=== PATIENT | male | born 1995 | race Caucasian/White ===

== ENCOUNTER 2017-12-20 15:33 | Emergency (ER) | payer BC ==
[2017-12-20 15:41] VITALS: BP 118/77; PULSE 74; RESP 18; TEMP 98.5
--- NOTE | 2017-12-20 15:48 | ED ---
Upper Extremity HPI - General Chief Complaint: Extremity Injury, Upper Stated Complaint: lt hand finger injury Time Seen by Provider: 12/20/17 15:42 Source: patient, RN notes reviewed Mode of arrival: ambulatory Limitations: no limitations - History of Present Illness Initial Comments: 22-year-old male presents emergency Department chief complaint of left hand fourth and fifth digit injury. Patient states he was [place] rope [place] states that he did not let go causing injury to to his fingers. He states that it he's had a prior dislocation to his digit. He does have a ring on his fourth digit which is difficult to remove. Patient denies any paresthesias. Denies any wrist pain. - Related Data Home Medications Medication Instructions Recorded Confirmed No Known Home Medications 12/20/17 12/20/17 Allergies Allergy/AdvReac Type Severity Reaction Status Date / Time No Known Allergies Allergy Verified 12/20/17 15:39 Review of Systems ROS Statement: Those systems with pertinent positive or pertinent negative responses have been documented in the HPI. ROS Other: All systems not noted in ROS Statement are negative. Past Medical History Past Medical History: No Reported History History of Any Multi-Drug Resistant Organisms: None Reported Past Surgical History: Hernia Repair Past Psychological History: No Psychological Hx Reported Smoking Status: Never smoker Past Alcohol Use History: None Reported Past Drug Use History: None Reported General Exam Limitations: no limitations General appearance: alert, in no apparent distress Head exam: Present: atraumatic, normocephalic, normal inspection Respiratory exam: Present: normal lung sounds bilaterally. Absent: respiratory distress, wheezes, rales, rhonchi, stridor Cardiovascular Exam: Present: regular rate, normal rhythm, normal heart sounds. Absent: systolic murmur, diastolic murmur, rubs, gallop, clicks Extremities exam: Present: other (Patient has tenderness over the fourth and fifth metacarpal, digit region patient has minimal swelling, ecchymosis, there is a ring noted which was removed, neurovascular intact) Skin exam: Present: warm, dry, intact, normal color. Absent: rash Course Vital Signs 12/20/17 15:39 Temperature 98.5 F Pulse Rate 74 Respiratory 18 Rate Blood Pressure 118/77 O2 Sat by Pulse 97 Oximetry Medical Decision Making - Medical Decision Making 22-year-old male presents emergency department for injury to his fourth and fifth digit. X-rays were obtained which shows finger fractures and a fourth and fifth digit. There was questionable third digit fracture though he has no tenderness and felt less likely to be a fracture. Patient was splinted and will follow-up with orthopedics as needed. Disposition Clinical Impression: Multiple fractures of fingers Disposition: HOME SELF-CARE Condition: Stable Instructions: Finger Fracture (ED) Additional Instructions: Please return to the Emergency Department if symptoms worsen or any other concerns. Is patient prescribed a controlled substance at d/c from ED?: No Referrals: Catrachito El MD [STAFF PHYSICIAN] - 1-2 days Time of Disposition: 16:19
--- NOTE | 2017-12-20 16:16 | XR ---
EXAMINATION TYPE: XR hand complete LT DATE OF EXAM: 12/20/2017 COMPARISON: NONE HISTORY: 22-year-old male with pain after tugging injury TECHNIQUE: 3 views FINDINGS: Oblique intra-articular fracture shows minimal displacement at the fifth middle phalangeal base. Intr a-articular extension into the PIP joint. There is additional minimally offset oblique fracture along the ulnar aspect of the fourth distal phalangeal base which also has intra-articular extension. Ther e may be a chip fracture or tiny avulsion fracture from the ulnar-sided base of the third distal phal angeal base. No subluxation or dislocation. IMPRESSION: 1. Minimally displaced, oblique, intra-articular fracture of the fifth middle phalangeal base. Fractu re extending into the PIP joint. 2. Minimally displaced, oblique, intra-articular fracture of the fourth distal phalangeal base. Fract ure extending into the DIP joint. 3. Possible tiny chip or avulsion fracture from the ulnar sided third distal phalangeal base.
== END 2017-12-20 16:32 | disposition home or self-care (01) ==
LOC: EC 15:33
DX: S62.627A Displaced fracture of middle phalanx of left little finger, initial encounter for closed fracture (principal); S62.635A Displaced fracture of distal phalanx of left ring finger, initial encounter for closed fracture; X58.XXXA Exposure to other specified factors, initial encounter; Y92.828 Other wilderness area as the place of occurrence of the external cause
CPT/HCPCS: 99283